=== PATIENT | male | born 1970 | race Caucasian/White ===

== ENCOUNTER 2021-09-07 11:40 | Emergency (ER) | payer OTHER ==
[~2021-09-07] VITALS: Ht 177.8 cm; Wt 95.3 kg
[2021-09-07 11:58] VITALS: BP 156/86
[2021-09-07 12:05] LABS: BASOPHIL % 0.4 % (0.0-0.2); EOSINOPHIL % 0.4 % (0.0-5.0); LYMPHOCYTES # 0.67 10^3/uL1 (1.0-4.8); LYMPHOCYTES % 11.9 % (24.0-44.0); MEAN CORP HGB 30.5 pg (26-34); MONOCYTES # 0.7 10^3/uL (0.3-0.8); MONOCYTES % 12.4 % (5.0-12.0); NEUTROPHIL # 4.2 10^3/uL (1.8-7.7); NEUTROPHILS % 74.5 % (41.0-85.0); PLATELET COUNT 273 10^3/uL (150-400); RED CELL DISTRIBUTION WIDTH 12.8 % (11.5-14.5)
--- NOTE | 2021-09-07 12:05 | NUR ---
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 PATIENT STATES ALL SYMPTOMS ARE RESOLVED.
--- NOTE | 2021-09-07 12:07 | PCM.EKG ---
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
[2021-09-07 12:23] LABS: CALCIUM 9.6 mg/dL (8.4-10.5); CARBON DIOXIDE 29.8 mmol/L (20.0-32)
--- NOTE | 2021-09-07 13:00 | ER.PDOC ---
General Chief Complaint: Nausea,Vomiting,Diarrhea Stated Complaint: N/V Time seen by MD: 13:00 Source: patient History of Present Illness Allergies: Coded Allergies: No Known Allergies (Unverified , 09/07/21) Past Medical History Medical History: hypertension Surgical History: other Social History Alcohol Use: occassionally Drug Use: none Results/Orders Results/Orders Orders - LAUREN PAPPAS MD Cbc With Auto Diff (09/07/21 11:49) Comprehensive Metabolic Panel (09/07/21 11:49) Amylase (09/07/21 11:49) Lipase (09/07/21 11:49) Helicobacter Pylori (09/07/21 11:49) PT (09/07/21 11:49) Partial Thromboplastin Time. (09/07/21 11:49) Troponin I (09/07/21 11:50) Creatine Kinase (09/07/21 11:50) Creatine Kinase Mb (09/07/21 11:50) Ekg-Routine (09/07/21 11:50) Vital Signs Date Time Temp Pulse Resp B/P (MAP) Pulse Ox O2 Delivery O2 Flow Rate FiO2 09/07/21 11:58 98.1 84 18 09/07/21 11:58 98.1 84 18 156/86 (109) 96 Room Air 09/07/21 11:58 98.1 84 18 96 Laboratory Tests Test 09/07/21 11:59 White Blood Count 5.6 10^3/uL (4.5-11.0) Red Blood Count 4.56 10^6/uL (4.50-5.90) Hemoglobin 13.9 g/dL (13.9-16.3) Hematocrit 43.0 % (37.0-53.0) Mean Corpuscular Volume 94.3 fL (78-100) Mean Corpuscular Hemoglobin 30.5 pg (26-34) Mean Corpuscular Hemoglobin Concent 32.3 g/dL (33-36.5) L Red Cell Distribution Width 12.8 % (11.5-14.5) Platelet Count 273 10^3/uL (150-400) Mean Platelet Volume 9.4 fL (7.8-11.0) Neutrophils (%) (Auto) 74.5 % (41.0-85.0) Lymphocytes (%) (Auto) 11.9 % (24.0-44.0) L Monocytes (%) (Auto) 12.4 % (5.0-12.0) H Neutrophils # (Auto) 4.2 10^3/uL (1.8-7.7) Lymphocytes # (Auto) 0.67 10^3/uL1 (1.0-4.8) L Monocytes # (Auto) 0.7 10^3/uL (0.3-0.8) Absolute Immature Granulocyte (auto 0.02 10^3 u/L (0-2) Absolute Eosinophils (auto) 0.0 10^3/uL (0.0-0.2) Immature Granulocytes % 0.40 % (0.00-0.50) Eosinophils % 0.4 % (0.0-5.0) Basophils % 0.4 % (0.0-0.2) H Basophils # 0.0 10^3/uL (0.0-0.1) Prothrombin Time 10.2 SEC (9.6-12.0) Prothrombin Time INR (Non-Therap) 0.9 Activated Partial Thromboplast Time 26.8 SEC (24.67-30.72) Sodium Level 138 mmol/L (132-145) Potassium Level 3.6 mmol/L (3.6-5.2) Chloride Level 100.0 mmol/L (96-109) Carbon Dioxide Level 29.8 mmol/L (20.0-32) Anion Gap 11.8 Blood Urea Nitrogen 14 mg/dL (7-18) Creatinine 1.18 mg/dL (0.59-1.40) Estimated GFR () 78.7 (>/=60) Est GFR (CKD-EPI)(Non-Afr Malagasy) 65.1 (>/=60) BUN/Creatinine Ratio 11.0 Glucose Level 104 mg/dL (70-110) Calcium Level 9.6 mg/dL (8.4-10.5) Total Bilirubin 0.2 mg/dL (0.2-1.0) Aspartate Amino Transferase (AST) 17 U/L (0-35) Alanine Aminotransferase (ALT) 22 U/L (12-78) Alkaline Phosphatase 84 U/L (50-136) Total Creatine Kinase 138 U/L (39-308) Creatine Kinase MB < 0.5 ng/mL (0.5-3.6) L Troponin I < 0.02 ng/mL (0.00-0.05) Total Protein 7.4 g/dL (6.4-8.2) Albumin 3.4 g/dL (3.4-5.0) Globulin 4.0 Albumin/Globulin Ratio 0.850 Amylase Level 70 U/L (25-115) Lipase 261 U/L (114-286) Helicobacter pylori Screen NEGATIVE (NEGATIVE) ER DEPART Departure Time of Disposition: 13:03 Disposition: 01 HOME / SELF CARE / HOMELESS Impression: Primary Impression: BPPV (benign paroxysmal positional vertigo) Condition: Stable Referrals: MARIMAR DAMON MD (PCP) PRIMARY CARE PROVIDER Duration or Time Spent with Pa: 12m LAUREN PAPPAS MD Sep 07, 2021 13:00
== END 2021-09-07 13:03 | disposition home or self-care (01) ==
LOC: ER 11:40
DX: R42 Dizziness and giddiness (principal); R79.1 Abnormal coagulation profile
CPT/HCPCS: 36415; 80053; 82150; 82550; 82553; 83690; 84484; 85025; 85610; 85730; 86677; 93005; 99284